=== PATIENT | female | born 1970 | race Caucasian/White ===

== ENCOUNTER 2018-02-08 11:47 | Emergency (ER) | payer BC, OTHER ==
[2018-02-08 12:00] VITALS: BP 103/62
--- NOTE | 2018-02-08 13:38 | RADIOLOGY REPORT (SQ) ---
EXAM DESCRIPTION: RIBS LEFT W/PA CHEST COMPLETED DATE/TIME: 02/08/2018 1:16 pm REASON FOR STUDY: pain after hug COMPARISON: None. TECHNIQUE: Frontal view of the chest and additional views of the left ribs acquired. NUMBER OF VIEWS: Three view. LIMITATIONS: None. FINDINGS: FRONTAL CXR: No pneumothorax. Apical pleural thickening. 5 mm nodule right upper lobe. RIBS: No displaced rib fractures. No lytic or blastic bony lesions. OTHER: No other significant finding. IMPRESSION: Small right lung nodule. No acute findings. COMMENT: SITE OF TRAUMA/COMPLAINT MARKED/STAMP COMPLETED: NO. TECHNICAL DOCUMENTATION: JOB ID: [id number] [employer]- All Rights Reserved Reading location - IP/workstation name: [email or web address]
[2018-02-08] MEDS ORDERED: IBUPROFEN 800 MG TABLET PO ONE (13:44)
--- NOTE | 2018-02-08 14:02 | ER Document Report ---
HPI - HPI Pain Level: 4 Context: Patient is a 48-year-old female who presents emergency department the chief complaint of left chest wall pain. Patient states that she was intimate with her when he arrived adjusted herself and had his chest up against hers and she felt pain in her left chest wall. She states now that it feels like a bruising aching pain under her left breast. Worse with certain movements and with deep inhalation. She did not take anything prior to arrival. Patient is postmenopausal. Follows with Dr. Schwartz - CONSTITUTIONAL Constitutional: DENIES: Fever, Chills - EENT EENT: DENIES: Sore Throat, Ear Pain, Eye problems - NEURO Neurology: DENIES: Headache, Weakness, Vision blurred, Dizzinesss / Vertigo - CARDIOVASCULAR Cardiovascular: REPORTS: Chest pain - RESPIRATORY Respiratory: DENIES: Trouble Breathing, Coughing - GASTROINTESTINAL Gastrointestinal: DENIES: Abdominal Pain, Black / Bloody Stools - URINARY Urinary: DENIES: Dysuria, Urgency, Frequency - REPRODUCTIVE Reproductive: DENIES: : - MUSCULOSKELETAL Musculoskeletal: DENIES: Extremity pain Past Medical History - Social History Smoking Status: Current Every Day Smoker Chew tobacco use (# tins/day): No Frequency of alcohol use: None Drug Abuse: None Family History: Reviewed & Not Pertinent Patient has suicidal ideation: No Patient has homicidal ideation: No Renal/ Medical History: Denies: Hx Peritoneal Dialysis Vertical Provider Document - CONSTITUTIONAL Agree With Documented VS: Yes Notes: PHYSICAL EXAM GENERAL: Alert, interacts well. HEAD: Normocephalic, atraumatic. EYES: Pupils equal, round, and reactive to light. Extraocular movements intact. ENT: Oral mucosa moist, tongue midline. NECK: Full range of motion. Supple. Trachea midline. LUNGS: Clear to auscultation bilaterally, no wheezes, rales, or rhonchi. No respiratory distress. HEART: Regular rate and rhythm. No murmurs, gallops, or rubs. NEUROLOGICAL: Alert and oriented x4. Normal speech. PSYCH: Normal affect, normal mood. SKIN: Warm, dry, normal turgor. No rashes or lesions noted. - INFECTION CONTROL TRAVEL OUTSIDE OF THE [place] IN LAST 30 DAYS: No Course - Re-evaluation Re-evalutation: 02/08/18 13:58 Patient is a 48-year-old female is hemodynamically stable, no acute distress. Physical exam benign. Chest x-ray does not show any evidence of pneumothorax, rib fracture or effusion. Right side does show evidence of a right upper lobe lung nodule with apical thickening. No evidence of cavitary lesion. Patient without any productive cough, fever shortness of breath. Given that patient is a former smoker did discuss the results with her and indications to follow-up with her primary care provider for additional workup. - Vital Signs Vital signs: Temp Pulse Resp BP Pulse Ox 98.1 F 65 18 103/62 97 02/08/18 11:56 02/08/18 11:56 02/08/18 11:56 02/08/18 11:56 02/08/18 11:56 - Diagnostic Test Radiology reviewed: Image reviewed, Reports reviewed Discharge - Discharge Clinical Impression: Chest wall pain, Lung nodule, solitary Condition: Good Disposition: HOME, SELF-CARE Instructions: Chest Wall Pain ([facility]), Anti-Inflammatory Medication ([facility]) Additional Instructions: Your x-ray does show evidence of a right lung nodule in the upper lobe. At this time it is recommended for you to follow-up with your primary care provider with the imaging that was done today for additional workup. How to use the incentive spirometer 1.Sit on the edge of your bed if possible, or sit up as far as you can in bed. 2.Hold the incentive spirometer in an upright position. 3.Place the mouthpiece in your mouth and seal your lips tightly around it. 4.Breathe in slowly and as deeply as possible. Notice the yellow piston rising toward the top of the column. The yellow indicator should reach the blue outlined area. 5.Hold your breath as long as possible. Then exhale slowly and allow the piston to fall to the bottom of the column. 6.Rest for a few seconds and repeat steps one to five at least 10 times every hour. 7.Position the yellow indicator on the left side of the spirometer to show your best effort. Use the indicator as a goal to work toward during each slow deep breath. 8.After each set of 10 deep breaths, cough to be sure your lungs are clear. If you have an incision, support your incision when coughing by placing a pillow firmly against it. 9.Once you are able to get out of bed safely, take frequent walks and practice the cough. Referrals: TRISTIAN SCHWARTZ MD [Primary Care Provider] - Follow up in 3-5 days
[2018-02-08] MEDS ORDERED: HYDROCODONE/ACETAMINOPHEN 5-325 MG (6 TAB/ER DISP) PO PRN (14:03)
== END 2018-02-08 14:31 | disposition home or self-care (01) ==
LOC: ER 11:47
DX: R07.89 Other chest pain (principal); R91.1 Solitary pulmonary nodule; F17.200 Nicotine dependence, unspecified, uncomplicated
CPT/HCPCS: 99284

== ENCOUNTER 2020-08-14 09:58 | Emergency (ER) | payer BC, OTHER ==
[2020-08-14] MEDS ORDERED: ONDANSETRON 4 MG TAB.RAPDIS PO ONE (10:55)
--- NOTE | 2020-08-14 10:58 | ER Document Report ---
ED Medical Screen (RME) - General Chief Complaint: Nausea/Vomiting/Diarrhea Stated Complaint: NAUSEA/FEVER/VOMITING/DIARRHEA/HEADACHE Time Seen by Provider: 08/14/20 10:55 Primary Care Provider: TRISTIAN DRUMMOND MD [Primary Care Provider] - Follow up as needed TRAVEL OUTSIDE OF THE [place] IN LAST 30 DAYS: No - HPI Notes: 08/14/20 10:55 50-year-old female presents with a hx of migraines and hypothyroidism to emergency room today with complaints of diarrhea nausea, headache, SOB, chills and lower back pain that started proximately 3 to 4 days ago, tried azev-zct-[id number] ibuprofen and Tylenol without relief. Sons were recently diagnosed with Covid. Denies any rashes. Decreased eating and drink without any issues. Patient reports that she has not vomited at this time. I have greeted and performed a rapid initial assessment of this patient. A comprehensive ED assessment and evaluation of the patient, analysis of test results and completion of the medical decision making process will be conducted by additional ED providers. PHYSICAL EXAMINATION: GENERAL: Well-appearing, well-nourished and in mild distress CV: s1, s2 regular LUNGS: No respiratory distress Musculoskeletal: Normal range of motion abd: generalized abd pain SKIN: Warm, Dry, normal turgor, no rashes or lesions noted. 08/14/20 10:56 - Related Data Allergies/Adverse Reactions: No Known Allergies Allergy (Unverified 02/08/18 11:49) Past Medical History Renal/ Medical History: Denies: Hx Peritoneal Dialysis Doctor's Discharge - Discharge Referrals: TRISTIAN DRUMMOND MD [Primary Care Provider] - Follow up as needed
[2020-08-14 11:34] LABS: ABSOLUTE LYMPHOCYTES (AUTO) 0.6 10^3/uL (0.5-4.7); ABSOLUTE MONOCYTES (AUTO) 0.1 10^3/uL (0.1-1.4); ABSOLUTE NEUT (AUTO) 1.7 10^3/uL (1.7-8.2); BASOPHILS % (AUTO) 0.6 % (0-2); EOSINOPHILS % (AUTO) 1.1 % (0-6); HEMATOCRIT 37.4 % (36.0-47.0); HEMOGLOBIN 13.4 g/dL (12.0-15.5); LYMPHOCYTES % (AUTO) 23.2 % (13-45); MEAN CORPUSCULAR HGB CONC 35.7 g/dL (32.0-36.0); MEAN CORPUSCULAR VOLUME 87 fl (80-97); MONOCYTES % (AUTO) 5.8 % (3-13); PLATELET COUNT 146 10^3/uL (150-450); RED BLOOD COUNT 4.31 10^6/uL (3.72-5.28); RED CELL DISTRIBUTION WIDTH 12.2 % (11.5-14.0); SEGMENTED NEUTROPHILS % (AUTO) 69.3 % (42-78); TOTAL CELLS COUNTED % (AUTO) 100 %; WHITE BLOOD COUNT 2.4 10^3/uL (4.0-10.5)
[2020-08-14 11:44] LABS: APPEARANCE,URINE CLEAR; BILIRUBIN,URINE NEGATIVE (NEGATIVE); COLOR,URINE YELLOW; GLUCOSE, URINE NEGATIVE (NEGATIVE); KETONES,URINE 20 mg/dL (NEGATIVE); LEUKOCYTE ESTERASE,URINE TRACE (NEGATIVE); NITRITE,URINE NEGATIVE (NEGATIVE); PROTEIN,URINE NEGATIVE (NEGATIVE); URINE SPECIFIC GRAVITY 1.011; UROBILINOGEN,URINE NEGATIVE mg/dL (<2.0)
[2020-08-14 11:53] LABS: ALBUMIN 4.4 g/dL (3.5-5.0); ALKALINE PHOSPHATASE 67 U/L (38-126); ANION GAP 11 (5-19); ASPARTATE AMINO TRANSFERASE 34 U/L (14-36); BILIRUBIN,TOTAL 0.6 mg/dL (0.2-1.3); BLOOD UREA NITROGEN 14 mg/dL (7-20); CALCIUM 9.1 mg/dL (8.4-10.2); CARBON DIOXIDE 26 mmol/L (22-30); CHLORIDE 98 mmol/L (98-107); GLUCOSE 93 mg/dL (75-110); POTASSIUM 5.1 mmol/L (3.6-5.0); TOTAL PROTEIN 7.3 g/dL (6.3-8.2)
--- NOTE | 2020-08-14 12:06 | RADIOLOGY REPORT (SQ) ---
EXAM DESCRIPTION: CHEST SINGLE VIEW IMAGES COMPLETED DATE/TIME: 08/14/2020 11:55 am REASON FOR STUDY: sob COMPARISON: None. EXAM PARAMETERS: NUMBER OF VIEWS: One view. TECHNIQUE: Single frontal radiographic view of the chest acquired. RADIATION DOSE: NA LIMITATIONS: None. FINDINGS: LUNGS AND PLEURA: Emphysema. 5 mm nodule right upper lobe probably a granuloma. No infil trate. MEDIASTINUM AND HILAR STRUCTURES: No masses. Contour normal. HEART AND VASCULAR STRUCTURES: Heart normal in size. Normal vasculature. BONES: No acute findings. HARDWARE: None in the chest. OTHER: No other significant finding. IMPRESSION: Lung nodule. No acute findings. TECHNICAL DOCUMENTATION: JOB ID: [id number] [employer]- All Rights Reserved Reading location - IP/workstation name: [email or web address]
[2020-08-14] MEDS ORDERED: NORMAL SALINE 1000 ML 1,000 ML IV ONE (12:20)
[2020-08-14] MEDS ORDERED: ONDANSETRON HCL INJ/PF 4 MG/2 ML SDV IV ONE (12:23)
[2020-08-14] MEDS ORDERED: KETOROLAC TROMETHAMINE INJ/PF 30 MG/1 ML SDV IV ONE (12:24)
[2020-08-14 14:08] LABS: A TYPE INFLUENZA AG NEGATIVE (NEGATIVE); B INFLUENZA AG NEGATIVE (NEGATIVE)
--- NOTE | 2020-08-14 15:06 | ER Document Report ---
Entered by BISHOP LUO SCRIBE 08/14/20 1218 Acting as scribe for:PETROS BRADY MD ED GI/ - General Chief Complaint: Nausea/Vomiting/Diarrhea Stated Complaint: NAUSEA/FEVER/VOMITING/DIARRHEA/HEADACHE Time Seen by Provider: 08/14/20 10:55 Primary Care Provider: TRISTIAN DRUMMOND MD [Primary Care Provider] - Follow up as needed Information source: Patient Notes: This 50 year old female patient presents to the emergency department today with complaints of N/D and cramping abdominal pain the past x2-3 days. Patient reports history of migraines, hypothyroidism, GERD, emphysema, and disc problems. Patient also reports a headache and back pain. Denies vomiting or sore throat. Patient states both of her sons have been tested covid positive the past week. TRAVEL OUTSIDE OF THE [place] IN LAST 30 DAYS: No - Related Data Allergies/Adverse Reactions: No Known Allergies Allergy (Verified 08/14/20 11:47) Past Medical History - General Information source: Patient - Social History Smoking Status: Former Smoker Cigarette use (# per day): No Lives with: Family Family History: Reviewed & Not Pertinent Neurological Medical History: Reports: Hx Migraine Endocrine Medical History: Reports: Hx Hypothyroidism Renal/ Medical History: Denies: Hx Peritoneal Dialysis GI Medical History: Reports: Hx Gastroesophageal Reflux Disease Review of Systems - Review of Systems Constitutional: No symptoms reported EENT: See HPI. denies: Throat pain Cardiovascular: No symptoms reported Respiratory: No symptoms reported Gastrointestinal: See HPI, Abdominal pain, Diarrhea, Nausea. denies: Vomiting Genitourinary: No symptoms reported Female Genitourinary: No symptoms reported Musculoskeletal: See HPI, Back pain Skin: No symptoms reported Hematologic/Lymphatic: No symptoms reported Neurological/Psychological: See HPI, Headaches -: Yes All other systems reviewed and negative Physical Exam - Vital signs Vitals: Temp Pulse Resp BP Pulse Ox 97.7 F 92 18 101/71 99 08/14/20 10:10 08/14/20 10:10 08/14/20 10:10 08/14/20 10:10 08/14/20 10:10 - General General appearance: Appears well, Alert - HEENT Head: Normocephalic, Atraumatic Eyes: Normal Pupils: PERRL - Respiratory Respiratory status: No respiratory distress Chest status: Nontender Breath sounds: Normal Chest palpation: Normal - Cardiovascular Rhythm: Regular Heart sounds: Normal auscultation Murmur: No - Abdominal Inspection: Normal, Other - Soft Distension: No distension Bowel sounds: Normal Tenderness: Nontender - Extremities General upper extremity: Normal inspection, Normal ROM General lower extremity: Normal inspection, Normal ROM. No: Edema - Neurological Neuro grossly intact: Yes Cognition: Normal Orientation: AAOx4 Cindi Coma Scale Eye Opening: Spontaneous [place]indi Coma Scale Verbal: Oriented [place] Coma Scale Motor: Obeys Commands [place] Coma Scale Total: 15 Speech: Normal Sensory: Normal - Psychological Associated symptoms: Normal affect, Normal mood - Skin Skin Temperature: Warm Skin Moisture: Dry Skin Color: Normal Course - Re-evaluation Re-evalutation: 08/14/20 14:46 Patient states her nausea has improved. Continues to still have back pain which is a chronic recurrent condition of hers. Discussed with patient her lab results showing a white blood cell count that this lower than normal parameters. Most likely this is due to viral illness. Patient's influenza a and B are both negative. Patient is in a residence with her 2 sons who both positive for coronavirus 19. Her 2 sons are improving and not showing significant deterioration from the coronavirus at this time. Patient reports herself that she feels as though she has a viral infection similar to influenza because of her aches and pains and back pain and headache. I discussed with patient that her test results for COVID-19 should result in 2 days and until then she should self quarantine and protect herself and others in the family. I recommended patient begin vitamin C 1000 mg twice a day, vitamin D3 2000 international units once a day, and zinc tablets 50 mg once a day. Also patient has requested prescribe her something for her back pain. - Vital Signs Vital signs: Temp Pulse Resp BP Pulse Ox 97.7 F 92 18 101/71 99 08/14/20 10:10 08/14/20 10:10 08/14/20 10:10 08/14/20 10:10 08/14/20 10:10 - Laboratory Result Diagrams: 08/14/20 11:15 08/14/20 11:15 Laboratory results interpreted by me: 08/14/20 08/14/20 08/14/20 11:15 11:15 11:15 WBC 2.4 L Plt Count 146 L Sodium 135.3 L Potassium 5.1 H Urine Ketones 20 H Ur Leukocyte Esterase TRACE H 08/14/20 14:48 Labs essentially unremarkable borderline changes of white blood cell 2.4 platelet count 146 sodium of 135 with a potassium of 5.1 ketones in the urine and trace leukocyte esterase. As discussed patient's white blood cell count with a low platelet count consistent with perhaps a viral illness and patient does show some mild hyponatremia and mild hyperkalemia. Also of note on patient's chest x-ray there is a a right lung nodule noted that is incidental. Will explain to patient to follow-up on her with her primary care doctor marco antonio sanchez the right lung nodule. - Diagnostic Test Radiology reviewed: Image reviewed, Reports reviewed Radiology results interpreted by me: 08/14/20 14:49 Chest X-Ray 08/14/20 10:56 IMPRESSION: Lung nodule. No acute findings. Incidental finding on chest x-ray is a lung nodule patient is recommended to follow-up with her primary care physician for further evaluation. Discharge - Discharge Clinical Impression: Suspected COVID-19 virus infection, Viral illness, Back pain, Leukopenia, Lung nodule, solitary Condition: Good Disposition: HOME, SELF-CARE Instructions: COVID-19 Guidance for Persons Under Investigation, Antinausea Medication ([facility]), Low Back Pain ([facility]), Viral Syndrome ([facility]) Additional Instructions: Incidentally you have a lung nodule in your lung on the right. At this time the significance of this is not known. It is something that you should follow-up with your primary care physician for further evaluation and monitoring of. As discussed with you you are a patient of interest for the COVID-19 virus inasmuch as your household has 2 members that are Covid 19+ at this time. We recommend that you begin 1 increase rest. Increase fluids. Begin [id number] medications: Vitamin C 1000 mg twice a day x10 days, vitamin D3 2000 international units once a day x10 days, and zinc tablet 50 mg once a day for 10 days. Your result for the COVID-19 test should result in the next 2 days. The hospital staff will call you once the results are known. If for any reason you are not improving or getting worse return to the hospital immediately thank you Prescriptions: Tramadol HCl [Ultram 50 mg Tablet] 50 mg PO Q4HP PRN #12 tab PRN Reason: Ondansetron [Zofran Odt 4 mg Tablet] 1 - 2 tab PO Q4H PRN #15 tab.rapdis PRN Reason: For Nausea/Vomiting Referrals: TRISTIAN DRUMMOND MD [Primary Care Provider] - Follow up as needed I personally performed the services described in the documentation, reviewed and edited the documentation which was dictated to the scribe in my presence, and it accurately records my words and actions.
[2020-08-14 15:34] VITALS: BP 96/54
== END 2020-08-14 15:34 | disposition home or self-care (01) ==
LOC: ER 09:58
DX: U07.1 COVID-19 (principal); R91.1 Solitary pulmonary nodule; J43.9 Emphysema, unspecified; R10.9 Unspecified abdominal pain; E87.5 Hyperkalemia; E87.1 Hypo-osmolality and hyponatremia; R11.0 Nausea; R51.9 Headache, unspecified; R19.7 Diarrhea, unspecified; M54.9 Dorsalgia, unspecified; G89.29 Other chronic pain; Z87.891 Personal history of nicotine dependence
CPT/HCPCS: 99284; 96361; 96374; 36415; 83690; 85025; 80053; 81001; 87804; 71045; U0003; S0119; J1885; J7030; C9803; 87635

== ENCOUNTER → 2020-10-28 | Outpatient (CLI) | payer BC, OTHER ==
[2020-10-28 18:15] LABS: ABSOLUTE EOSINOPHILS # (AUTO) 0.1 10^3/uL (0.0-0.6); ABSOLUTE LYMPHOCYTES (AUTO) 1.3 10^3/uL (0.5-4.7); ABSOLUTE MONOCYTES (AUTO) 0.2 10^3/uL (0.1-1.4); BASOPHILS % (AUTO) 0.7 % (0-2); EOSINOPHILS % (AUTO) 3.4 % (0-6); HEMATOCRIT 36.3 % (36.0-47.0); HEMOGLOBIN 12.5 g/dL (12.0-15.5); LYMPHOCYTES % (AUTO) 35.6 % (13-45); MEAN CORPUSCULAR HEMOGLOBIN 30.9 pg (27.0-33.4); MEAN CORPUSCULAR HGB CONC 34.4 g/dL (32.0-36.0); MEAN CORPUSCULAR VOLUME 90 fl (80-97); MONOCYTES % (AUTO) 4.6 % (3-13); PLATELET COUNT 185 10^3/uL (150-450); RED BLOOD COUNT 4.04 10^6/uL (3.72-5.28); SEGMENTED NEUTROPHILS % (AUTO) 55.7 % (42-78); TOTAL CELLS COUNTED % (AUTO) 100 %; WHITE BLOOD COUNT 3.6 10^3/uL (4.0-10.5)
[2020-10-28 18:40] LABS: ALBUMIN 4.6 g/dL (3.5-5.0); ALKALINE PHOSPHATASE 67 U/L (38-126); ANION GAP 6 (5-19); ASPARTATE AMINO TRANSFERASE 23 U/L (14-36); BILIRUBIN,DIRECT 0.2 mg/dL (0.0-0.4); BILIRUBIN,TOTAL 0.6 mg/dL (0.2-1.3); BLOOD UREA NITROGEN 14 mg/dL (7-20); CALCIUM 9.7 mg/dL (8.4-10.2); CARBON DIOXIDE 35 mmol/L (22-30); CHLORIDE 99 mmol/L (98-107); GLUCOSE 91 mg/dL (75-110); POTASSIUM 4.7 mmol/L (3.6-5.0); TOTAL PROTEIN 7.6 g/dL (6.3-8.2)
[2020-10-28 18:49] LABS: C-REACTIVE PROTEIN < 5.0 mg/L (<10.0)
[2020-10-28 19:10] LABS: ERYTHROCYTE SEDIMENTATION RATE 16 mm/hr (0-30)
== END ==
LOC: OD 16:09
PROVIDERS: ATTEND Family Medicine
DX: M25.50 Pain in unspecified joint (principal)
CPT/HCPCS: 36415; 80053; 85025; 85652; 86038; 86140; 86431; 86617; 86618; 86812